=== PATIENT | female | born 1990 | race Caucasian/White ===

== ENCOUNTER 2018-07-15 14:36 | Emergency (ER) | payer MEDICAID ==
[2018-07-15] MEDS: TETRACAINE 0.5% 4 ML OPH LEFT EYE (18:05)
== END 2018-07-15 22:44 | disposition left against medical advice (07) ==
LOC: FTE 14:36
DX: H54.62 Unqualified visual loss, left eye, normal vision right eye (principal)
CPT/HCPCS: 70450; 76536; 99284-25